=== PATIENT | male | born 1955 | race American Indian/Alaskan Native ===

== ENCOUNTER 2020-10-21 03:40 | Emergency (ER) | payer MEDICAID ==
[2020-10-21] MEDS ORDERED: IBUPROFEN 800 MG TAB PO ONE (09:00)
[2020-10-21] MEDS ORDERED: TETANUS,DIPH,PERTUSS(ACELL) VACCINE 0.5 ML SYRINGE IM ONE (09:00)
[2020-10-21] MEDS ORDERED: NEOMY 3.5 MG/BACIT 400 UNITS/POLY B 5000 UNITS/GM OINT PACKET TP ONE (09:02)
--- NOTE | 2020-10-21 09:02 | Emergency Department Report ---
ED Laceration HPI - HPI Chief Complaint: Laceration/Recheck/Suture Stated Complaint: CUT LEFT THUMB OPEN Time Seen by Provider: 10/21/20 08:57 Occurred When: Today Location: Upper Extremity Severity: mild Tetanus Status: Unknown Laceration Symptoms: Yes Pain, No Foreign Body Sensation, No Numbness, No Weakness Other History: PT HAD GROUND LEVEL FALL 6 H [employer]. HE HAS SMALL LAC OF LEFT THUMB THAT EXTENDS UNDER NAIL BED. PAINFUL AND THROBBING PER PT. NO BLEEDING. NEUROVASC INTACT. FULL ROM. NO SUBUNGAL HEMATOMA. NO OTHER INJURY. MECHANICAL FALL, WITNESSED ED Review of Systems ROS: Stated complaint: CUT LEFT THUMB OPEN Other details as noted in HPI Comment: All other systems reviewed and negative ED Past Medical Hx - Past Medical History Previous Medical History?: Yes Additional medical history: WALKS WITH WALKER - Surgical History Past Surgical History?: No - Family History Family history: no significant - Social History Substance Use Type: Alcohol Laceration Physical Exam - Exam General: Vital signs noted. No distress. Alert and acting appropriately. Laceration Location: Upper Extremity Laceration Exam: Yes Normal Distal CMS, No Foreign Body, No Exposed Tendon, Vessel, or Nerve, No Tendon Injury ED Course Vital Signs 10/21/20 05:59 Temperature 97.8 F Pulse Rate 74 Respiratory 20 Rate Blood Pressure 152/93 [Right] O2 Sat by Pulse 99 Oximetry ED Medical Decision Making - Medical Decision Making wound cleaned NO REPAIR NEEDED dressing applied tdap given wound care instructions dc home with wound care instructions verbalizes understanding Vital Signs 10/21/20 05:59 Temperature 97.8 F Pulse Rate 74 Respiratory 20 Rate Blood Pressure 152/93 [Right] O2 Sat by Pulse 99 Oximetry - Differential Diagnosis simple lac Critical care attestation.: If time is entered above; I have spent that time in minutes in the direct care of this critically ill patient, excluding procedure time. ED Disposition Clinical Impression: Thumb laceration Disposition: DC-01 TO HOME OR SELFCARE Is pt being admited?: No Does the pt Need Aspirin: No Condition: Stable Instructions: Laceration Care, Adult Additional Instructions: REST ICE ELEVATE KEEP WOUND CLEAN AND DRY MOTRIN OR TYLENOL FOR PAIN FOLLOW UP WITH PCP NEXT WEEK TO BE SURE YOU ARE GETTING BETTER TDAP GIVEN TODAY Referrals: EVAN CHAMBERLAIN MD [Primary Care Provider] - 3-5 Days RAMON JOHNSON MD [Staff Physician] - 3-5 Days Time of Disposition: 08:59
[2020-10-21 09:45] VITALS: BP 149/79
== END 2020-10-21 09:45 | disposition home or self-care (01) ==
LOC: ED 03:40
DX: S61.012A Laceration without foreign body of left thumb without damage to nail, initial encounter (principal); Z88.8 Allergy status to other drugs, medicaments and biological substances; W45.8XXA Other foreign body or object entering through skin, initial encounter; Y93.89 Activity, other specified; Y92.89 Other specified places as the place of occurrence of the external cause; Y99.8 Other external cause status
CPT/HCPCS: 90471; 90715; 99282; A6250